=== PATIENT | female | born 1960 | race African-American/Black ===

== ENCOUNTER 2017-12-11 14:40 | Emergency (ER) | payer OTHER ==
[~2017-12-11] VITALS: Ht 157.5 cm; Wt 118.6 kg
[2017-12-11 17:08] LABS: HEMOGLOBIN 11.4 G/DL (11.9-15.5); MCH 31.1 PG (29.0-34.0); MCHC 33.5 G/DL (30.0-36.0); MCV 92.9 FL (83-99); PLATELET COUNT 259 K/uL (156-360); RBC DIS.WIDTH-CV 14.1 % (11.8-14.6); RBC DIS.WIDTH-SD 47.7 % (39-53); RED BLOOD COUNT 3.66 M/uL (3.80-5.20); WHITE BLOOD COUNT 5.8 K/uL (4.1-10.2)
[2017-12-11 17:17] LABS: PTT 31.3 SEC (25-37)
[2017-12-11 17:21] LABS: CHLORIDE 106 mEq/L (99-109); POTASSIUM 4.2 mEq/L (3.7-5.4); SODIUM 139 mEq/L (136-147)
[2017-12-11 17:23] LABS: GLUCOSE 92 mg/dL (70-99)
[2017-12-11 17:27] LABS: CREATININE 0.9 mg/dL (0.6-1.3); GFR ESTIMATE (CALCULATED) > 59 mL/min/
[2017-12-11 17:28] LABS: UREA NITROGEN (BUN) 13 mg/dL (9-23)
[2017-12-11] MEDS ORDERED: ULTRAM50 MG PO (18:01)
[2017-12-11 18:38] VITALS: BP 157/86
== END 2017-12-11 18:43 | disposition home or self-care (01) ==
LOC: EME 14:40
PROVIDERS: Nurse Practitioner Family
DX: R60.0 Localized edema (principal); M79.604 Pain in right leg; I49.8 Other specified cardiac arrhythmias; D64.9 Anemia, unspecified
CPT/HCPCS: 80048; 83880; 85027; 85610; 85730; 93005; 93970; 99281; 99285